=== PATIENT | female | born 1955 | race Caucasian/White ===

== ENCOUNTER 2021-12-24 19:16 | Emergency (ER) | payer MEDICARE, SELFPAY ==
--- NOTE | ~2021-12-24 | XR_ITS ---
EXAMINATION: XR SHOULDER, RIGHT CLINICAL INFORMATION: Pain status-post fall. COMPARISON: None TECHNIQUE: AP external rotation, Grashey and scapula Y views of the right shoulder are submitted. FINDINGS: Bony alignment and mineralization are normal. The glenohumeral joint is intact and slightly subluxed. There is a displaced comminuted fracture fragment arising from the greater tuberosity of the proximal right humerus. A nondisplaced, slightly impacted right humeral neck fracture is suspected. The acromioclavicular and coracoclavicular intervals are normal. No foreign body is seen. There is no pneumothorax. XR/XR shoulder RT min 2V IMPRESSION: A comminuted, displaced fracture fragment is seen arising from the greater tuberosity of the proximal right humerus. As well, an impacted, nondisplaced fracture is suspected of the surgical neck of the right humerus. The right glenohumeral joint appears slightly subluxed, without avril dislocation.
--- NOTE | ~2021-12-24 | XR_ITS ---
EXAMINATION: XR CHEST 2 VIEWS CLINICAL INFORMATION: Upper back pain status-post fall. COMPARISON: None. TECHNIQUE: Frontal and lateral views of the chest were obtained. FINDINGS: The heart, great vessels, pulmonary vasculature and mediastinum are normal. The lungs show no focal infiltrate, effusion or pneumothorax. There is mild elevation of the right hemidiaphragm. There is no acute osseous abnormality. XR/XR chest 2V IMPRESSION: No active cardiopulmonary disease.
[2021-12-24 19:23] VITALS: BP 146/83; PULSE 97; O2SAT 98
[2021-12-24 19:30] VITALS: BMI 67.3
[2021-12-24 19:36] VITALS: BP 163/81; PULSE 109; RESP 22; TEMP 36.7; O2SAT 98
--- NOTE | 2021-12-24 19:38 | ED_ITS ---
HPI - Fall General Chief Complaint: Fall Stated Complaint: Rt arm Injury Time Seen by Provider: 12/24/21 19:37 Source: patient Mode of arrival: EMS Limitations: no limitations History of Present Illness HPI Narrative: Patient is 66yrs oldotherwise healthy was in the kitchen taking care of her grandkids 1-1/2-year-old grand kids suddenly came behind inbetween the legs patient was turning lost balance fell on her right shoulder comes with obvious injury the right shoulder unable to move because of pain no other injuries no loss of consciousness no head injury she was able to ambulate Related Data Previous Rx's Medication Instructions Recorded hydromorphone 2 mg tablet 2 mg PO Q6H PRN pain #20 tabs 12/24/21 (Dilaudid) ondansetron 4 mg disintegrating 4 mg PO Q6-8H PRN nausea and 12/24/21 tablet vomiting #14 tabs Allergies Allergy/AdvReac Type Severity Reaction Status Date / Time No Known Allergies Allergy Verified 12/24/21 19:50 Review of Systems Review of Systems: Yes all other systems are reviewed and are negative [facility] Social History Social History Patient Tobacco Use Status: Former Tobacco user Use of substances other than those prescribed or required for medical reasons: No Advance Directives: No Advance Directives Information Provided: Yes Physical Exam Vital Signs: Vital Signs: Last Vital Signs Temp 98.0 F 12/24/21 19:36 Pulse 109 H 12/24/21 19:36 Resp 20 12/24/21 19:58 BP 163/81 H 12/24/21 19:36 Pulse Ox 98 12/24/21 19:36 O2 Del Method 12/24/21 19:36 Appearance: Alert. Oriented X3. In moderate distress right arm in sling. Eyes: PERRLA, ENT: Pharynx normal. Oral Mucosa moist Neck: Normal inspection. Neck supple. CVS: Normal heart rate and rhythm. Pulses normal. Respiratory: No respiratory distress. Equal air entry bilateral, Abdomen: Soft and nontender. Extremities: Pelvis stable right arm diffuse tenderness at the upper end of humerus neurovascular intact Neuro: Oriented X 3. No motor deficit. No sensory deficit Extrem: Shoulder/upper arm images: 1. Diffuse swelling and tenderness neurovascular intact sensory sensation intact deltoid MDM - Fall MDM Narrative Medical decision making narrative: Patient with right upper end humerus fracture case discussed Dr. Laura sheridan for now follow up as outpatient Discharge Plan Discharge Clinical Impression: Humeral head fracture Patient Disposition: Home, Self-Care Instructions: Arm Fracture in Adults (ED) Additional Instructions: Get a right upper extremity and sling Pain medication as prescribed And see Ortho specialist on 12/28 Prescriptions: New hydromorphone [Dilaudid] 2 mg tablet 2 mg PO Q6H PRN (Reason: pain) Qty: 20 0RF Rx Instructions: Partial Fill upon patient request. ondansetron 4 mg tablet,disintegrating 4 mg PO Q6-8H PRN (Reason: nausea and vomiting) Qty: 14 0RF
[2021-12-24 19:58] VITALS: RESP 20
[2021-12-24] MEDS: HYDROmorphone HCl 1 MG/ML SYRINGE IVPUSH (19:58)
[2021-12-24] MEDS: ondansetron HCL 4 MG/2 ML VIAL IVPUSH ×2 (19:59→20:56)
--- NOTE | 2021-12-24 20:08 | PC.NURSE ---
Addendum entered by Abena Mercer 12/24/21 20:10: Patient is a/o x 4. IV is on 22 fr and EMS administer spray fentanyl although it did not help patient with her pain. Patient has arrived with a sling made by EMS. Original Note: Patient came in in a excruciating pain, vs were stable, and pain meds administered as order.
[2021-12-24] MEDS: HYDROmorphone HCl 2 MG/ML VIAL IVPUSH (20:56)
--- NOTE | 2021-12-24 21:21 | PC.NURSE ---
patient medicated for nausea and pain, pt taken out of clothes and put in hospital attire, sling applied to rue, pt has +csm/pulses, pt vomited x1, provider notified, will continue to monitor
[2021-12-24 22:00] VITALS: BP 161/78; PULSE 92; RESP 20; TEMP 36.7; O2SAT 97
== END 2021-12-24 22:26 | disposition home or self-care (01) ==
PROVIDERS: Emergency Provider Internal Medicine
DX: S42.251A Displaced fracture of greater tuberosity of right humerus, initial encounter for closed fracture (principal); W03.XXXA Other fall on same level due to collision with another person, initial encounter; Y93.F9 Activity, other caregiving; Y92.019 Unspecified place in single-family (private) house as the place of occurrence of the external cause; Y99.9 Unspecified external cause status
CPT/HCPCS: 71046; 73030; 96374; 96375; 96376; 99284; J1170; J2405

== ENCOUNTER 2022-02-28 10:44 | Emergency (ER) | payer MEDICARE, SELFPAY ==
--- NOTE | ~2022-02-28 | XR_ITS ---
Indication: Fall, pain EXAMINATION: Bilateral knees, right foot, right ankle and right shoulder. 4 views of the left knee does not demonstrate evidence for acute fracture or dislocation. 3 views of the right foot demonstrates a lucency through the base of the distal phalanx of the first digit. Consistent with fracture. Transverse in nature. 2 images of the right ankle demonstrate density emanating off the distal fibula. Consistent with avulsion fracture. Soft tissue swelling is noted. The mortise is otherwise grossly intact. 4 views of the right knee demonstrates a small joint effusion. There is a bony density along the medial aspect of the distal femur. Findings may well be consistent with avulsion fracture in the region of the medial collateral ligament insertion. Differential would include degenerative calcific change 2 views of the right shoulder demonstrate fracture of the surgical neck of the humerus. Comminuted. There may be a large fracture fragment on the axillary image overlying the humeral head. XR/XR ankle RT min 3V IMPRESSION: Multiple studies. Fracture of the distal phalanx of the first digit in the right foot transverse in nature. Not significantly distracted. Fracture of the right humeral neck likely extending into the humeral head. Findings suggest avulsion of the distal right femur medially in the region of the insertion of the medial collateral ligament. Avulsion fracture of the distal right fibula
--- NOTE | ~2022-02-28 | XR_ITS ---
Indication: Fall, pain EXAMINATION: Bilateral knees, right foot, right ankle and right shoulder. 4 views of the left knee does not demonstrate evidence for acute fracture or dislocation. 3 views of the right foot demonstrates a lucency through the base of the distal phalanx of the first digit. Consistent with fracture. Transverse in nature. 2 images of the right ankle demonstrate density emanating off the distal fibula. Consistent with avulsion fracture. Soft tissue swelling is noted. The mortise is otherwise grossly intact. 4 views of the right knee demonstrates a small joint effusion. There is a bony density along the medial aspect of the distal femur. Findings may well be consistent with avulsion fracture in the region of the medial collateral ligament insertion. Differential would include degenerative calcific change 2 views of the right shoulder demonstrate fracture of the surgical neck of the humerus. Comminuted. There may be a large fracture fragment on the axillary image overlying the humeral head. XR/XR knee LT 2V IMPRESSION: Multiple studies. Fracture of the distal phalanx of the first digit in the right foot transverse in nature. Not significantly distracted. Fracture of the right humeral neck likely extending into the humeral head. Findings suggest avulsion of the distal right femur medially in the region of the insertion of the medial collateral ligament. Avulsion fracture of the distal right fibula
--- NOTE | ~2022-02-28 | XR_ITS ---
Indication: Fall, pain EXAMINATION: Bilateral knees, right foot, right ankle and right shoulder. 4 views of the left knee does not demonstrate evidence for acute fracture or dislocation. 3 views of the right foot demonstrates a lucency through the base of the distal phalanx of the first digit. Consistent with fracture. Transverse in nature. 2 images of the right ankle demonstrate density emanating off the distal fibula. Consistent with avulsion fracture. Soft tissue swelling is noted. The mortise is otherwise grossly intact. 4 views of the right knee demonstrates a small joint effusion. There is a bony density along the medial aspect of the distal femur. Findings may well be consistent with avulsion fracture in the region of the medial collateral ligament insertion. Differential would include degenerative calcific change 2 views of the right shoulder demonstrate fracture of the surgical neck of the humerus. Comminuted. There may be a large fracture fragment on the axillary image overlying the humeral head. XR/XR foot RT min 3V IMPRESSION: Multiple studies. Fracture of the distal phalanx of the first digit in the right foot transverse in nature. Not significantly distracted. Fracture of the right humeral neck likely extending into the humeral head. Findings suggest avulsion of the distal right femur medially in the region of the insertion of the medial collateral ligament. Avulsion fracture of the distal right fibula
--- NOTE | ~2022-02-28 | XR_ITS ---
Indication: Fall, pain EXAMINATION: Bilateral knees, right foot, right ankle and right shoulder. 4 views of the left knee does not demonstrate evidence for acute fracture or dislocation. 3 views of the right foot demonstrates a lucency through the base of the distal phalanx of the first digit. Consistent with fracture. Transverse in nature. 2 images of the right ankle demonstrate density emanating off the distal fibula. Consistent with avulsion fracture. Soft tissue swelling is noted. The mortise is otherwise grossly intact. 4 views of the right knee demonstrates a small joint effusion. There is a bony density along the medial aspect of the distal femur. Findings may well be consistent with avulsion fracture in the region of the medial collateral ligament insertion. Differential would include degenerative calcific change 2 views of the right shoulder demonstrate fracture of the surgical neck of the humerus. Comminuted. There may be a large fracture fragment on the axillary image overlying the humeral head. XR/XR shoulder RT min 2V IMPRESSION: Multiple studies. Fracture of the distal phalanx of the first digit in the right foot transverse in nature. Not significantly distracted. Fracture of the right humeral neck likely extending into the humeral head. Findings suggest avulsion of the distal right femur medially in the region of the insertion of the medial collateral ligament. Avulsion fracture of the distal right fibula
--- NOTE | ~2022-02-28 | XR_ITS ---
Indication: Fall, pain EXAMINATION: Bilateral knees, right foot, right ankle and right shoulder. 4 views of the left knee does not demonstrate evidence for acute fracture or dislocation. 3 views of the right foot demonstrates a lucency through the base of the distal phalanx of the first digit. Consistent with fracture. Transverse in nature. 2 images of the right ankle demonstrate density emanating off the distal fibula. Consistent with avulsion fracture. Soft tissue swelling is noted. The mortise is otherwise grossly intact. 4 views of the right knee demonstrates a small joint effusion. There is a bony density along the medial aspect of the distal femur. Findings may well be consistent with avulsion fracture in the region of the medial collateral ligament insertion. Differential would include degenerative calcific change 2 views of the right shoulder demonstrate fracture of the surgical neck of the humerus. Comminuted. There may be a large fracture fragment on the axillary image overlying the humeral head. XR/XR knee RT 3V IMPRESSION: Multiple studies. Fracture of the distal phalanx of the first digit in the right foot transverse in nature. Not significantly distracted. Fracture of the right humeral neck likely extending into the humeral head. Findings suggest avulsion of the distal right femur medially in the region of the insertion of the medial collateral ligament. Avulsion fracture of the distal right fibula
[2022-02-28 11:12] VITALS: BP 131/89; BP 159/71; PULSE 86; PULSE 90; RESP 18; TEMP 36.8; O2SAT 98; O2SAT 99; BMI 29.9
--- NOTE | 2022-02-28 11:19 | ED.FALL ---
HPI - Fall General Chief Complaint: Fall Stated Complaint: FALL W/R ANKLE PAIN T-1 PER EMS Time Seen by Provider: 02/28/22 11:19 Source: patient, family () and EMS Mode of arrival: EMS Limitations: no limitations History of Present Illness HPI Narrative: Patient is a 66 year old assigned female at with a history of a right humeral fracture and pulmonary hypertension, presenting to the emergency department today with bilateral knee pain, right ankle pain, and right shoulder pain after a fall. Patient states that she was out yesterday when she fell, landing on her right side. Patient denies striking her head in the incident. Patient denies any loss of consciousness from the incident. Patient denies any dizziness, lightheadedness, abdominal pain, nausea, vomiting, fever, chills, blurry vision, double vision, loss of vision, chest pain, difficulty breathing, shortness of breath, back pain, night sweats, pain with urination, increased urinary frequency, increased urinary urgency, blood in her urine or stool, syncope or a near syncopal episode, bowel incontinence, bladder incontinence, bowel retention, bladder retention, or any other complaints at this time. MD complaint: fall Onset (ago): day(s) (1) Fall from: standing Fall witnessed: yes, by family Loss of consciousness: none Prolonged down time: no Symptoms prior to fall: none Context: tripped/slipped Severity: mild Severity scale (1-10): 3 Quality: dull and aching Associated symptoms (after fall): denies Related Data Previous Rx's Medication Instructions Recorded hydromorphone 2 mg tablet 2 mg PO Q6H PRN pain #20 tabs 12/24/21 (Dilaudid) ondansetron 4 mg disintegrating 4 mg PO Q6-8H PRN nausea and 12/24/21 tablet vomiting #14 tabs walker #1 ea 02/28/22 Allergies Allergy/AdvReac Type Severity Reaction Status Date / Time erythromycin base Allergy Unknown Verified 02/28/22 11:22 sulfamethoxazole Allergy Unknown Verified 02/28/22 11:22 [From Bactrim] tramadol Allergy Unknown Verified 02/28/22 11:22 trimethoprim [From Bactrim] Allergy Unknown Verified 02/28/22 11:22 Review of Systems Constitutional: Constitutional: Reports no additional constitutional complaints, Denies chills, Denies fever(s) and Denies night sweats Eyes: Eyes: Reports no additional eye complaints, Denies blurry vision, Denies change in vision, Denies diplopia, Denies eye discharge, Denies loss of vision and Denies eye pain ENT: Denies dizziness Cardiovascular: Cardiovascular: Reports no additional cardiovascular complaints, Denies chest pain, Denies lightheadedness, Denies Loss of Consciousness and Denies dyspnea Respiratory: Respiratory: Reports no additional respiratory complaints and Denies dyspnea Gastrointestinal: Gastrointestinal: Reports no additional gastrointestinal complaints, Denies abdominal pain, Denies melena, Denies hematochezia, Denies change in bowel habits and Denies change in stool character Genitourinary: Genitourinary: Denies hematuria, Denies urinary frequency, Denies dysuria, Denies urinary incontinence, Denies urinary hesitancy and Denies urinary urgency Musculoskeletal: Musculoskeletal: Reports no additional musculoskeletal complaints, Denies numbness and Denies tingling Comments: right shoulder pain, bilateral knee pain, right ankle pain Neurologic: Denies dizziness, Denies loss of vision, Denies numbness and Denies tingling Psychiatric: Psychiatric: Reports no additional psychiatric complaints Endocrine: Endocrine: Reports no additional endocrine complaints Hematologic/Lymphatic: Hematologic/Lymphatic: Reports no additional hematologic/lymphatic complaints Allergic/Immunologic: Allergic/Immunologic: Reports no additional allergic/immunologic complaints PMFSH Past Medical History Attestation statement: The following information was validated with the patient. Source: old records reviewed Social History Social History Patient Tobacco Use Status: Former Tobacco user Advance Directives: No Advance Directives Information Provided: No Physical Exam Vital Signs: Vital Signs: Last Vital Signs Temp 98.3 F 02/28/22 11:12 Pulse 86 02/28/22 11:12 Resp 18 02/28/22 11:12 BP 159/71 H 02/28/22 11:12 Pulse Ox 98 02/28/22 11:12 O2 Del Method 02/28/22 11:12 BMI result Body Mass Index 29.9 Const: General: cooperative, no acute distress, alert and awake Nutritional Appearance: well nourished Orientation/consciousness: patient oriented x3 Limitations: no limitations HEENT: Head: Yes normal to inspection and Yes atraumatic Ears: hearing grossly normal bilaterally and external ears normal General nose exam: Normal external nose present, no nasal discharge noted and no epistaxis Face and sinus: Yes normal facial exam, No abrasion and No laceration Mouth: Normal oral and palatal mucosa present, no drooling and no muffled voice Eyes: General: appearance normal, both eyes and all related structures Periorbital: periorbital findings normal Eyelids: Yes eyelids normal Conjunctivae: conjunctivae normal Pupils: Equal, round and reactive pupils present EOM: EOMs intact bilaterally Neck: Neck: Yes normal visual inspection, Yes full ROM and Yes no lymphadenopathy Chest: Chest palpation & inspection: normal inspection of the chest Resp: Effort & Inspection: normal respiratory effort and able to speak in complete sentences Auscultation: clear to auscultation bilaterally Cardio: Rate: regular rate Rhythm: regular rhythm GI: Inspection: Yes normal to inspection Neuro: General: patient oriented x3 and moves all extremities Cranial nerves: Yes Equal, round and reactive pupils present Cognition (Neuro): normal cognition Motor exam (neuro): 5/5 motor strength present throughout Sensory Exam: Normal double simultaneous stimulation for sensation Coordination: [id number] test normal Extrem: Other: decreased ROM of the right upper arm secondary to pain, swelling present to the right ankle, minimal bruising to the right great toe General: Yes capillary refill normal Psych: Appearance: grossly normal Mental Status: mental status grossly normal Affect: normal affect Attitude: cooperative Thought process: Normal thought process present Thought content: Normal thought content present Insight: Good insight present (Psych) Procedures Orthopedic Splinting/Casting Injury #1: Side: right Lower Extremity Injury Location: ankle Lower Extremity Immobilizer: boot orthosis Other Orthopedic Equipment: walker MDM - Fall MDM Narrative Medical decision making narrative: Patient is a 66 year old assigned female at with a history of pulmonary hypertension and a broken right humerus presenting to the emergency department today with right ankle pain, right shoulder pain, and bilateral knee pain. Patient's physical exam showed minimal bruising to the right great toe, right ankle swelling, and right upper arm ROM limited secondary to pain. Patient's imaging revealed a fracture of the right great toe, a fracture of the distal fibula, a possible small fracture of the distal femur, and a right humeral fracture. When reviewing the imaging with the orthopedic provider home demonstration agent, it appears the right humeral fracture is not new but rather is the same fracture the patient has previously had. Orthopedic provider home demonstration agent recommended the patient be placed in a boot and follow up outpatient. Patient states that she follows with [facility] and would like to follow with them. Patient's images put onto a disc and given to the patient. Patient's right foot placed in a walking boot, without incident. I explained my physical exam findings as well as all test results to the patient and the patient's . I answered all questions asked by the patient and the patient's . I stressed the importance of the patient taking her medication as prescribed. I stressed the importance of the patient following up with her primary care provider and [facility]. I stressed the importance of the patient returning to the emergency department immediately if her symptoms were to worsen or if she were to develop any dizziness, shortness of breath, difficulty breathing, chest pain, blurry vision, loss of vision, nausea, vomiting, abdominal pain, fever, chills, back pain, or any other complaints. Patient and the patient's verbalized agreement and understanding with this treatment plan and discharge. Differential Diagnosis Differential diagnosis: Likely fracture Medical Records Attestation: I reviewed the patient's medical records. Lab Data Attestation: I reviewed the patient's lab results. Imaging Data Bilateral knees, right foot, right ankle, and right shoulder x-rays: Attestation: I personally reviewed and interpreted this imaging study as follows: My impression: Right great toe fracture, right distal fibula fracture, right distal femur avulsion fracture (possible), chronic right humerus fracture Radiologist's impression: EXAMINATION: Bilateral knees, right foot, right ankle and right shoulder. 4 views of the left knee does not demonstrate evidence for acute fracture or dislocation. 3 views of the right foot demonstrates a lucency through the base of the distal phalanx of the first digit. Consistent with fracture. Transverse in nature. 2 images of the right ankle demonstrate density emanating off the distal fibula. Consistent with avulsion fracture. Soft tissue swelling is noted. The mortise is otherwise grossly intact. 4 views of the right knee demonstrates a small joint effusion. There is a bony density along the medial aspect of the distal femur. Findings may well be consistent with avulsion fracture in the region of the medial collateral ligament insertion. Differential would include degenerative calcific change 2 views of the right shoulder demonstrate fracture of the surgical neck of the humerus. Comminuted. There may be a large fracture fragment on the axillary image overlying the humeral head. XR/XR shoulder RT min 2V IMPRESSION: Multiple studies. Fracture of the distal phalanx of the first digit in the right foot transverse in nature. Not significantly distracted. ? Fracture of the right humeral neck likely extending into the humeral head. ? Findings suggest avulsion of the distal right femur medially in the region of the insertion of the medial collateral ligament. ? Avulsion fracture of the distal right fibula Dictated By: Haroon Wong MD Signed By: Electronically signed by Haroon Wong MD 02/28/22 1251 Discharge Plan Discharge Clinical Impression: Ankle fracture, Fracture of toe, Fracture, humerus Patient Disposition: Home, Self-Care Instructions: Ankle Fracture (ED), Toe Fracture (ED) Additional Instructions: Follow up with your primary care provider and your orthopedic provider. Return to the emergency department immediately if your symptoms worsen or if you develop any dizziness, shortness of breath, difficulty breathing, chest pain, blurry vision, loss of vision, nausea, vomiting, abdominal pain, fever, chills, back pain, or any other complaints. Prescriptions: New (DME) walker [facility] See Rx Instructions .Route Qty: 1 0RF Rx Instructions: As directed No Action hydromorphone [Dilaudid] 2 mg tablet 2 mg PO Q6H PRN (Reason: pain) Qty: 20 0RF Rx Instructions: Partial Fill upon patient request. ondansetron 4 mg tablet,disintegrating 4 mg PO Q6-8H PRN (Reason: nausea and vomiting) Qty: 14 0RF Referrals: [facility] [Provider Group] (If you can't be seen within 2 weeks at your usual orthopedic office, please follow up with [facility] ortho. ) [facility] [Provider Group] (Follow up with your orthopedic provider. ) Interventions: ED Discharge Assessment Last Done: 02/28/22 14:02 Discharge Date/Time: 02/28/22 14:03 Print Language: Turkmen
== END 2022-02-28 14:03 | disposition home or self-care (01) ==
PROVIDERS: Emergency Provider Emergency Medicine
DX: S82.891A Other fracture of right lower leg, initial encounter for closed fracture (principal); S92.911A Unspecified fracture of right toe(s), initial encounter for closed fracture; S42.401A Unspecified fracture of lower end of right humerus, initial encounter for closed fracture; M25.561 Pain in right knee; M25.511 Pain in right shoulder; W01.0XXA Fall on same level from slipping, tripping and stumbling without subsequent striking against object, initial encounter; Y93.9 Activity, unspecified; Y92.9 Unspecified place or not applicable; Y99.9 Unspecified external cause status; Z79.899 Other long term (current) drug therapy
CPT/HCPCS: 29515; 73030; 73560; 73562; 73610; 73630; 99282; 99284

== ENCOUNTER 2022-03-11 07:12 | Outpatient (REF) | payer MEDICARE, SELFPAY | END 2022-03-11 07:13 | disposition home or self-care (01) | LOC: HO.HOSX 07:12 | PROVIDERS: Visit Provider Physician Assistant | DX: Z13.89 Encounter for screening for other disorder (principal) ==

== ENCOUNTER 2023-02-21 12:44 | Outpatient (RCR) | payer MEDICARE, SELFPAY | END 2023-03-07 15:00 | disposition home or self-care (01) | LOC: HO.WCC 12:44 | PROVIDERS: PCP Family Medicine; Visit Provider Physician Assistant | DX: S51.812A Laceration without foreign body of left forearm, initial encounter (principal); I13.0 Hypertensive heart and chronic kidney disease with heart failure and stage 1 through stage 4 chronic kidney disease, or unspecified chronic kidney disease; I50.9 Heart failure, unspecified; N18.9 Chronic kidney disease, unspecified | CPT/HCPCS: 11042 ==